=== PATIENT | male | born 1955 | race African-American/Black ===

== ENCOUNTER → 2019-03-30 | Day surgery (SDC) | payer OTHER ==
[~2019-03-30] VITALS: Ht 190.5 cm; Wt 79.4 kg
[~2019-03-30] MED LIST: ceFAZolin 1gm IVPB IVPB ONE; celeBREX 200mg Cap **SURGERY PATIENTS ONLY ORAL ONE; oxyCONTIN 20mg tab ORAL ONE
== END | disposition home or self-care (01) ==
LOC: SUR 06:10
DX: Z53.9 Procedure and treatment not carried out, unspecified reason (principal)